=== PATIENT | female | born 1965 | race Caucasian/White ===

== ENCOUNTER 2018-03-27 11:07 | Emergency (ER) | payer OTHER, MEDICARE ==
[~2018-03-27] VITALS: Ht 162.6 cm; Wt 78.9 kg
[~2018-03-27 11:07] MED LIST: ANTIVERT 25MG #1 PAC PO; BENZTROPINE ME0.5 M1 PO; CITALOPRAM HBR20 MG PO; FLEXERIL10 MG PO; IBUPROFEN800 MG PO; KEPPRA1000 M1 PO; LEVOTHYROXINE75 MCG PO; LOSARTAN POTAS100 M1 PO; MECLIZINE HCL25 MG PO; OLANZAPINE10 M1 PO; OLANZAPINE2.5 MG PO; OXYCODONE5 M1 PO; PANTOPRAZOLE SO40 M1 PO; PHENYTOIN SODI100 MG PO; PRINIVIL5 M1 PO; PROAIR HFA8.5 GM INH; QUETIAPINE FUM200 M1 PO; TRAMADOL50 MG PO; TRAZODONE HCL100 M1 PO; TRAZODONE50 MG PO; VERAPAMIL ER240 M1 PO; VITAMIN D31000 UNI2 PO
[2018-03-27 11:21] VITALS: BP 134/81
[2018-03-27 11:39] LABS: ABSOLUTE BASOPHIL COUNT 0 /CUMM (0.0-0.2); ABSOLUTE EOSINOPHIL COUNT 0 /CUMM (0.0-0.7); ABSOLUTE GRANULOCYTE CT 5.1 /CUMM (1.4-6.5); ABSOLUTE LYMPH COUNT 1.7 /CUMM (1.2-3.4); ABSOLUTE MONOCYTE COUNT 0.7 /CUMM (0.10-0.60); BASOPHIL % 0.6 % (0.0-2.0); EOSINOPHIL % 0.6 % (0-5); GRANULOCYTE % 67.5 % (42.2-75.2); HEMATOCRIT 41.6 % (37-47); MEAN CORPUSCULAR HGB CONC 34.2 G/DL (33.0-37.0); MEAN CORPUSCULAR VOLUME 93.7 FL (81.0-99.0); MEAN PLATELET VOLUME 7.4 FL (7.4-10.4); PLATELET COUNT 248 /CUMM (130-400); RBC DISTRIBUTION WIDTH 12.7 % (11.5-14.5); RED BLOOD CELL CT 4.44 /CUMM (4.20-5.40); WHITE BLOOD CELL COUNT 7.6 /CUMM (4.8-10.8)
== END 2018-03-27 12:44 | disposition admitted as inpatient to this hospital (09) ==
LOC: ERH 11:07
PROVIDERS: Physician Assistant
DX: R42 Dizziness and giddiness (principal); R53.1 Weakness
CPT/HCPCS: 81001; 93005; 93010; 99281

== ENCOUNTER 2018-03-31 07:25 | Emergency (ER) | payer OTHER, MEDICARE ==
[~2018-03-31] VITALS: Ht 162.6 cm; Wt 76.7 kg
[2018-03-31 07:36] VITALS: BP 136/86
[2018-04-04] MEDS ORDERED: VENTOLIN HFA18 GM INH (11:12)
[2018-04-04] MEDS ORDERED: CEPHALEXIN500 M3 PO (11:17)
[2018-04-04] MEDS ORDERED: IBUPROFEN600 M1 PO (13:41)
== END 2018-03-31 09:02 | disposition admitted as inpatient to this hospital (09) ==
LOC: ERH 07:25
DX: T42.6X5A Adverse effect of other antiepileptic and sedative-hypnotic drugs, initial encounter (principal)